=== PATIENT | male | born 1960 | race Caucasian/White ===

== ENCOUNTER 2025-03-19 06:25 | Day surgery (SDC) | payer MEDICARE, MEDICAID, SELFPAY ==
[2025-03-19] VITALS (18 sets, daily range): BP systolic 137–172; BP diastolic 56–92; PULSE 49–96; RESP 16–18; TEMP 36.2–36.8; O2SAT 89–97; BMI 30.4
--- OUTSIDE RECORDS SUMMARY | 2025-03-19 06:35 | XMS RPT_ITS | CCD ---
Author Organization [facility] Inform ion Partnership [facility] Care Team Providers Care Mink Rancher Name Role Phone VICTOR MANUEL VALERIO Attending Unavailable VICTOR MANUEL VALERIO Primary Care Unavailable VICTOR MANUEL VALERIO Admitting Unavailable KRAIG HAYES CNP Referring Unavailable KRAIG HAYES CNP Consulting Unavailable PROVIDER, UNKNOWN Consulting Unavailable PROVIDER, UNKNOWN Consulting Unavailable KRAIG HAYES CNP Consulting Unavailable JOSEFINA FERNANDEZ DR Attending Unavailable JOSEFINA FERNANDEZ DR Primary Care Unavailable JOSEFINA FERNANDEZ DR Admitting Unavailable PROVIDER, UNKNOWN Consulting Unavailable PROVIDER, UNKNOWN Consulting Unavailable JA METZ DO Attending Unavailable JA METZ DO Primary Care Unavailable JA METZ DO Admitting Unavailable KRAIG HYAES CNP Consulting Unavailable PROVIDER, UNKNOWN Consulting Unavailable PROVIDER, UNKNOWN Consulting Unavailable Nathan Rojas Primary Care Unavailable Ja Metz Attending Unavailable Problems Problem Classification Problem Date Documented Da te Episodic/Chronic E Codes: Fall (1 source) Fall on same level from slipping, tripping and stumbling without subsequent striking against object, initial encounter; Translations: [Fall on same level from slipping, tripping and stumbling without subsequent striking against object, initial encounter] Onset: 01-28-2025 Episodic E Codes: Place of occurrence (1 source) Garden or yard in single-family (private) house as the place of occurrence of the external cause; Translations: [Garden or yard in single-family (private) house as the place of occurrence of the external cause] Onset: 01-28-2025 Episodic Other injuries and conditions due to external causes (1 source) Unspecified injury of muscle(s) and tendon(s) of the rotator cuff of right shoulder, initial encounter; Translations: [Unspecified injury of muscle(s) and tendon(s) of the rotator cuff of right shoulder, initial encounter] Onset: 01-28-2025 Episodic Other non-traumatic joint disorders (2 sources) Pain in right shoulder; Translations: [Pain in right shoulder] Onset: 01-28-2025 Episodic Substance-related disorders (1 source) Nicotine dependence, unspecified, uncomplicated; Translations: [Nicotine dependence, unspecified, uncomplicated] Onset: 01-28-2025 Chronic Substance-related disorders (1 source) Cannabis use, unspecified, uncomplicated; Translations: [Cannabis use, unspecified, uncomplicated] Onset: 01-28-2025 Episodic Results Test Name Value Interpretation Reference Range Facility BMP with eGFRon 03-10-2025 AGE 64 years Normal [facility] Comment on above: Performed By: #### 2 [id number] #### [facility],[address] [place] [address] Anion gap [Moles/Vol] 8 mmol/L Low 10 - 20 [facility] Comment on above: Performed By: #### 2 68552 #### [facility],[address] [place] [address] BMP with eGFR Normal [facility] Comment on above: Result Comment: BASI C METABOLIC PANEL Performed By: #### 2 09059 #### [facility],[address] [place] [address] Calcium [Mass/Vol] 9.0 mg/dL Normal 8.5 - 10.1 [facility] Comment on above: Performed By: #### 2 45541 #### [facility],[address] [place], [place] [address] Chloride [Moles/Vol] 100 mmol/L Normal 98 - 107 [facility] Comment on above: Performed By: #### 2 77788 #### [facility],[address] [place], [place] [address] CO2 [Moles/Vol] 31.5 mmol/L Normal 21.0 - 32.0 [facility] Comment on above: Performed By: #### 2 01734 #### [facility],[address] [place], [place] [address] Creatinine [Mass/Vol] 0.83 mg/dL Normal 0.70 - 1.30 [facility] Comment on above: Performed By: #### 2 94500 #### [facility],[address] [place], [place] [address] GFR/1.73 sq M.predicted among non-blacks MDRD (S/P/Bld) [Vol rate/Area] mL/min/{1.73_m2} Normal 60 - 999 [facility] Comment on above: Performed By: #### 2 97954 #### [facility],[address] [place] [address] Result Comment: ACCO RDING TO THE NATIONAL KIDNEY DISEASE EDUCATION PROGRAM(NKDE), A NORMAL eGFR IS A VALUE GREATER THAN OR EQUAL TO 60 ML/MIN/1.73 SQ METERS. CHRONIC KIDNEY DISEASE: <60mL/MIN/1.73 SQ METERS KIDNEY FAILURE: <15mL/MIN/1.73 SQ METERS THIS TEST SHOULD ONLY BE USED FOR PATIENTS 18 YEARS OF AGE AND OLDER. Glucose [Mass/Vol] 75 mg/dL Normal 74 - 106 [facility] Comment on above: Performed By: #### 2 86679 #### [facility],[address] [place], [place] [address] Potassium [Moles/Vol] 3.9 mmol/L Normal 3.5 - 5.1 [facility] Comment on above: Performed By: #### 2 26422 #### [facility],[address] [place], [place] [address] Sodium [Moles/Vol] 136 mmol/L Normal 136 - 145 [facility] Comment on above: Performed By: #### 2 46290 #### [facility],[address] [place], [place] [address] Urea nitrogen [Mass/Vol] 12 mg/dL Normal 7 - 18 [facility] Comment on above: Performed By: #### 2 39613 #### [facility],[address] [place], [place] [address] CBC + DIFFon 03-10-2025 Baso # 0.04 x10EE3/UL Normal 0.00 - 0.10 [facility] Comment on above: Performed By: #### 2 77335 #### [facility],[address] [place] [address] 38625 Basophils/100 WBC (Bld) 0.5 % Normal 0.0 - 2.0 [facility] Comment on above: Performed By: #### 2 96588 #### [facility],[address] [place] [address] CBC + DIFF Normal [facility] Comment on above: Result Comment: CBC- COMPLETE BLOOD COUNT Performed By: #### 2 71879 #### [facility],[address] [place] [address] 12661 EO # 0.15 x10EE3/UL Normal 0.00 - 0.50 [facility] Comment on above: Performed By: #### 2 87507 #### [facility],[address] [place] [address] 45718 Eosinophils/100 WBC (Bld) 1.8 % Normal 0.0 - 7.0 [facility] Comment on above: Performed By: #### 2 80616 #### [facility],[address] [place] [address] 97188 Erythrocyte distribution width (RBC) [Ratio] 13.6 % Normal 12.0 - 15.6 [facility] Comment on above: Performed By: #### 2 46132 #### [facility],[address] [place] [address] 23521 Hematocrit (Bld) [Volume fraction] 45.8 % Normal 40.0 - 52.0 [facility] Comment on above: Performed By: #### 2 37342 #### [facility],[address] [place] [address] 46904 Hemoglobin (Bld) [Mass/Vol] 16.5 g/dL Normal 13.0 - 17.5 [facility] Comment on above: Performed By: #### 2 28852 #### [facility],[address] [place] [address] 16846 Lymph # 1.54 x10EE3/UL Normal 0.80 - 2.80 [facility] Comment on above: Performed By: #### 2 37299 #### [facility],[address] [place] [address] 90950 Lymphocytes/100 WBC (Bld) 18.8 % Low 20.0 - 45.0 [facility] Comment on above: Performed By: #### 2 48048 #### [facility],[address] [place] [address] 57164 MANUAL DIFF N/A Normal [facility] Comment on above: Performed By: #### 2 13731 #### [facility],[address] [place], [place] [address] MCH (RBC) [Entitic mass] 35 pg High 27 - 33 [facility] Comment on above: Performed By: #### 2 29199 #### [facility],[address] [place] [address] 62442 MCHC 36 X10 3 Normal 32 - 36 [facility] Comment on above: Performed By: #### 2 72093 #### [facility],[address] [place] [address] 56337 MCV (RBC) [Entitic vol] 97 fL Normal 81 - 98 [facility] Comment on above: Performed By: #### 2 04049 #### [facility],[address] [place] [address] 50411 Laramie # 0.70 x10EE3/UL Normal 0.20 - 1.00 [facility] Comment on above: Performed By: #### 2 82082 #### [facility],[address] [place] [address] 83348 MONOS % 8.6 % Normal 0.0 - 10.0 [facility] Comment on above: Performed By: #### 2 35228 #### [facility],[address] [place] [address] 24917 Morphology Paul (Bld) [Interp] N/A Normal [facility] Comment on above: Performed By: #### 2 51715 #### [facility],[address] [place] [address] 98945 Neut # 5.74 x10EE3/UL Normal 1.50 - 7.10 [facility] Comment on above: Performed By: #### 2 30638 #### [facility],[address] [place] [address] 86378 Neutrophils/100 WBC (Bld) 70.3 % Normal 46.0 - 76.0 [facility] Comment on above: Performed By: #### 2 20677 #### [facility],[address] [place] [address] 12066 PLATELET 249 x10EE3/UL Normal 150 - 450 [facility] Comment on above: Performed By: #### 2 53756 #### [facility],[address] [place] [address] 21814 Platelet mean volume (Bld) [Entitic vol] 8.5 fL Normal 6.4 - 10.5 [facility] Comment on above: Result Comment: AUTO MATED DIFFERENTIAL Performed By: #### 2 42672 #### [facility],[address] [place] [address] 80279 RBC 4.74 x 10EE6/UL Normal 4.50 - 6.00 [facility] Comment on above: Performed By: #### 2 08082 #### [facility],[address] [place] [address] 55634 WBC 8.2 x 10EE3/UL Normal 4.5 - 10.8 [facility] Comment on above: Performed By: #### 2 77823 #### [facility],[address] [place] [address] 67082 MR SHOULDER W/O RTon 025 MR SHOULDER W/O RT [address] [address] Patient: RASHEED HALL Phone#: : 1960 Age: 64 Gender: M Pt. Type: Out Account: [id number] Location: 052 Ordering: JOSEFINA FERNANDEZ Exam Date: 02/06/2025/16:35 Family Phys: KRAIG HAYES Charge Code: [id number] Physician: Prince George Order #: [id number] Dose#: PROCEDURE: MRI SHOULDER RT WITHOUT CONTRAST COMPARISON: None. INDICATIONS: Fall TECHNIQUE: A variety of imaging planes and parameters were utilized for visualization of suspected pathology. Images were performed without contrast. FINDINGS: ROTATOR CUFF REGION CUFF TENDONS: Full thickness supraspinatus tendon tear with retraction approximately 3.1 cm. High-grade subscapularis tendon tear, series 10, image 20. There may be a few intact fibers. The majority of the tendon is thickened, hyperintense in signal and heterogeneous. Full thickness infraspinatus tendon tear at the myotendinous junction. The remaining length of the tendon appears dissected with fluid. The free edge of the tendon is thickened and heterogeneous in signal, series 10, image 13. CUFF MUSCLES: There is extensive edema in the infraspinatus and supraspinatus muscles. There is mild edema in the subscapularis muscle. In the region of the teres minor there is heterogeneous T1 and T2 hyperintense signal, most consistent with hematoma. The collection measures 1.7 x 1.3 x 3.4 cm, series 8, image 23 and series 7, image 8. There is edema in the residual teres minor. DELTOID: There is an intramuscular hematoma in the anterior deltoid, series 10, image 22. The hematoma measures approximately 8.7 x 2.8 x 5.3 cm. Fluid collection demonstrates T1 and T2 signal heterogeneity. LONG BICEPS TENDON: Long head biceps tendon is medially subluxed, series 10, image 16. The tendon is thickened and heterogeneous in signal consistent with tear. There is heterogeneous fluid surrounding the tendon is distal to the bicipital groove. LABRUM/BICEPS ANCHOR SUPERIOR: Superior labral tear, series 8, image 17. ANTERIOR/INFERIOR: Normal. No visible tear or attrition. POSTERIOR: Normal. No posterior labrum abnormality. CAPSULE Continued Report - Page 2 of 2 Patient: RASHEED HALL Phone#: : 1960 Age: 64 Gender: M Pt. Type: Out Account: [id number] Location: [facility] Ordering: JOSEFINAANGÉLICA FERNANDEZ Exam Date: 02/06/2025/16:35 Family Phys: KRAIG HAYES Charge Code: [id number] Physician: Prince George Order #: [id number] Dose#: ANTERIOR/INFERIOR: Middle glenohumeral ligament appears intact. Inferior glenohumeral ligament appears thickened with mild associated T2 hyperintense signal though appears intact. POSTERIOR: Normal. No visible capsular laxity or thickening. AC JOINT REGION AC JOINT: There is arthrosis at the acromioclavicular joint. AC LIGAMENTS: Normal acromioclavicular ligament. CC LIGAMENTS: Normal coracoclavicular ligaments. ACROMION: Type 2 configuration SUBACROMIAL BURSA: There is heterogeneous fluid filling the subacromial subdeltoid bursa. HYALINE CARTILAGE: There is thinning of the cartilage of the humeral head and glenoid. OTHER BONES: There is superior subluxation of the glenoid with loss of acromial humeral interval consistent with rotator cuff tear. There is posterior subluxation of the humeral head relative to the glenoid. OTHER OBSERVATIONS: There is a moderate sized joint effusion. CONCLUSION: 1. Full thickness supraspinatus tendon tear with retraction. 2. Near complete full-thickness subscapularis tendon tear. The tendon is thickened and abnormal in signal. There may be a few intact fibers. 3. Infraspinatus tendon tear at the myotendinous junction. Joint effusion tracks in a tear along the length of the free edge of the distal tendon. The free edge of the tendon is hypertrophied and abnormal in signal. 4. Large intramuscular hematoma in the anterior deltoid muscle. 5. Long head biceps tendon is medially subluxed and enlarged and hyperintense in signal consistent with tear. 6. Superior labral tear 7. Hematoma corresponding to the teres minor muscle. 8. Humeral head is superiorly and posteriorly subluxed. Cartilage loss at the glenohumeral articulations. 9. Intramuscular edema involving all rotator cuff muscles. 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 Given 5-325 (Percocet) PO Allergies verified and confirmed 5 rights. Information reviewed with 18:00 01/28/2025 1 tab (NOW x1, patient including reason for taking this medication, signs of allergic Stefany Barr R.N. HIGH ALERT reaction and precautions. Verbalizes understanding. - 18:04 Scanned MEDICATION) Stefany Barr R.N. TraMADol (Ultram) 20:01 01/28 TraMADol (Ultram) PO 100 mg given. Allergies Given PO 100 mg (NOW verified and confirmed 5 rights. Information reviewed. Verbalizes 20:01 01/28/2025 x1, HIGH ALERT understanding. - 20:01 Tori Parker R.N. MEDICATION) Scanned 1 of 1 Normal [facility] ED NURSES CLINICAL NOTEon ED NURSES CLINICAL NOTE Nurse Narrative Nurse Clinical Narrative [address] [address] [id number] 01/28/2025 17:31:00 Patient: RASHEED HALL Sex: Male : 1960 Age: 64y Disposition: Discharge Disposition Decision Time: 18:17 01/28/2025 Departure Time: 20:02 01/28/2025 TRIAGE Arrived by private vehicle. Historian: (patient). Patient has a primary care physician. Primary physician (none). Triage time: 17:32 01/28/2025. Acuity: LEVEL 4. Chief Complaint: INJURY TO RIGHT SHOULDER. ( pt slipped on wet carpet this morning and fell on his right shoulder and his left leg. pt has large bruise to right shoulder. limited ROM). Fell. SEPSIS SCREEN: NEGATIVE. SIRS criteria negative: heart rate greater than 90. No possible sources of infection. -- 17:39 01/28/25 EDT Alfredo Hylton R.N. 17:35 01/28/25. BP: 120/87 MAP: 98. HR: 88. RR: 18. O2 saturation: 97% Temperature: 98.1 F. Pain level now 10. -- 17:38 01/28/25 EDT Alfredo Hylton R.N. Measurements: 17:39 01/28/25 Wt: 95.3 kg, Ht/Estevan: 69.0 in, BMI: 31.01 -- 17:39 01/28/25 MARIAMT Alfredo Hylton R.N. Medications: no known home medications -- 17:35 01/28/25 MARIAMT Alfredo Hylton R.N. 1 of 3 Nurse Narrative Allergies: no known drug allergies -- 17:35 01/28/25 DANIEL Hylton R.N. Problems: no known problem -- 17:35 01/28/25 DANIEL Hylton R.N. Surgeries: Back Surgery -- 17:35 01/28/25 DANIEL Hylton R.N. History 17:01/28/25. SOCIAL HX: Heavy tobacco smoker- 1 pack per day. Drug use: marijuana, THC edibles. No alcohol use. The patient has not traveled outside the [place] Infectious disease exposure: No infectious disease exposure. ABUSE ASSESSMENT: Abuse denied. SELF HARM ASSESSMENT: Self harm assessment was performed. The patient answered no to the question(s) Do you have thoughts of harming or killing yourself? and Do you have a plan for harming or killing yourself?. FALL RISK ASSESSMENT: Fall risk assessment completed. No risk factors identified. -- 17:39 01/28/25 EDT Alfredo Warner, R.N. Interventions 17:32 01/28/25. Advanced care plan discussed with patient. Patient does not have advanced directive. -- 17:39 01/28/25 EDT Alfredo Hylton R.N. PHYSICAL ASSESSMENT 18:07 01/28/25. GENERAL / NEURO / PSYCH: Oriented X 4. Alert. Appears in no acute distress. EXTREMITIES: Capillary refill is less than 2 seconds in the extremities. Extremity pulses are within normal limits. 2 of 3 Nurse Narrative Neuro-vascular status intact to the extremity. Right shoulder: tenderness, swelling and ecchymosis. Limited ROM due to pain and swelling (diminished abduction and adduction). SKIN: Skin intact. Skin is warm and dry. -- 18:07 01/28/25 EDT Stefany Barr R.N. 18:07 01/28/25. Pain level now 10/10. Describes the pain as throbbing. -- 18:07 01/28/25 EDT Stefany Barr R.N. NURSING PROGRESS NOTES 17:43 01/28/25. ED physician at the patient's bedside. -- 17:58 01/28/25 EDT Stefany Barr R.N. 17:48 01/28/25. cd technician at the patient's bedside (for shoulder xray). -- 17:58 01/28/25 MARIAMT Stefany Barr R.N. 18:00 01/28/25. OxyCODONE-APAP 5-325 (Percocet) PO 1 tab given. Allergies verified and confirmed 5 rights. Information reviewed with patient including reason for taking this medication, signs of allergic reaction and precautions. Verbalizes understanding. -- 18:04 01/28/25 EDT Stefany Barr R.N. 19:10 01/28/25. Sling applied to right arm by nurse; distal pulses intact, sensation intact and motor function within normal limits. -- 19:35 01/28/25 EDT Stefany Barr R.N. 20:01 01/28/25. TraMADol (Ultram) PO 100 mg given. Allergies verified and confirmed 5 rights. Information reviewed. Verbalizes understanding. -- 20:01 01/28/25 EDT Mellisa Fernandez R.N. DISPOSITION / DISCHARGE 19:32 01/28/25. BP: 181/100 taken on left arm, while sitting. MAP: 127. HR: 81. Regular. RR: 16. Regular and unlabored. O2 saturation: 97% on room air. Temperature: Deferred . Pain level now 04/02. -- 19:34 01/28/25 EDT Stefany Barr R.N. 19:34 01/28/25. Cardiac rhythm: normal sinus rhythm. Condition at departure: stable. No learning barriers present. Discharge instructions provided and reviewed with the patient. Reviewed medication(s) side effects, precautions, dosing and course information. Prescription(s) given to the patient and sent electronically to pharmacy. Reviewed referral to an orthopedic surgeon for followup. Patient verbalized understanding. Written instructions provided in Setswana. The patient was discharged home. The patient left ambulatory and via private vehicle. Family member driving. -- 19:34 01/28/25 EDT Stefany Barr R.N. Departure time: 20:02 01/28/2025. -- 20:02 01/28/25 EDT Mellisa Fernandez R.N. 20:02 01/28/25. ( Ultram 50mg x2 sent home with pt.). -- 20:03 01/28/25 EDT Mellisa Fernandez R.N. (E (more content not included)... Normal [facility] ED ORDER SHEET (CPOE ONLY)on 01-29-2025 ED ORDER SHEET (CPOE ONLY) Order Sheet Order Sheet [address] [address] [id number] 01/28/2025 Patient: RASHEED HALL Sex: Male : 1960 Age: 64y MEASUREMENTS: Wt: 95.3 kg, Ht/Estevan: 69.0 in, BMI: 31.01 ALLERGIES: No known drug allergies MEDICATION/IV/DRIP/FLU ID ORDERS Order Description Priority Entered Acknowledged Completed OxyCODONE-APAP 5-325 17:35 01/28/2025 17:59 18:04 (Percocet) PO1 tab (NOW Victor Manuel galan, 01/28/2025 01/28/2025 HIGH ALERT MEDICATION) D.O. Stefany Everett R.N. R.N. TraMADol (Ultram) PO100 mg 19:29 01/28/2025 20:01 (NOW x1, HIGH ALERT Jermaine Duran, 01/28/2025 MEDICATION) Poncho Fernandez R.N. Reason for ordering with alerts: Benefits outweigh risks --19:29 01/28/2025 Jermaine Duran D.O. LAB ORDERS Order Description Priority Entered Acknowledged Collected Completed DIAGNOSTIC STUDY ORDERS Order Description Priority Entered Acknowledged Completed Shoulder R Complete Stat Stat 17:35 01/28/2025 17:59 17:59 Victor Manuel Valerio, 01/28/2025 01/28/2025 1 of 2 Order Sheet Stefany Giang R.N. R.N. Reason for Study: Trauma/Injury STAFF ORDERS Order Description Priority Entered Acknowledged Collected Completed [Electronically signed by Victor Manuel Valerio D.O. (01/28/2025 18:20 EDT)] [Electronically signed by Jermaine Duran D.O. (01/28/2025 19:29 EDT)] 2 of 2 Normal [facility] ED PHYSICIAN CLINICAL REPORT on 01-29-2025 ED PHYSICIAN CLINICAL REPORT Narrative Physician Clinical Narrative [address] [address] [id number] 01/28/2025 17:31:00 Patient: RASHEED HALL Sex: Male : 1960 Age: 64y Disposition: Discharge Disposition Decision Time: 18:17 01/28/2025 Measurements Wt: 95.3 kg, Ht/Estevan: 69.0 in, BMI: 31.01 Initial Vital Sign Measured Time BP MAP HR RR O2Sat ETCO2 Temp Pain GCS RTS 17:35 01/28/2025 120/87 98 88 18 97% 98.1 F 10 Time Seen: 17:36 01/28/2025. Arrived- By private vehicle. Historian- patient. HISTORY OF PRESENT ILLNESS Chief Complaint: Injury to the right shoulder. The injury happened today. Occurred at home. ( Patient tripped over a rolled up piece of carpet outside and fell in his right shoulder. Has had pain since that time. Unable to lift up his shoulder. Denies any head injury or loss of consciousness. Patient is not on anticoagulation.). REVIEW OF SYSTEMS NEUROLOGICAL: No tingling or numbness. PAST HISTORY no known problem 1 of 4 Narrative Surgeries: Back Surgery Medications: no known home medications Allergies: no known drug allergies SOCIAL HISTORY No alcohol use or drug use. ADDITIONAL NOTES The nursing notes have been reviewed. PHYSICAL EXAM Vital Signs: Have been reviewed. Appearance: Alert. No acute distress. Head: Head atraumatic. Neck: C-spine non-tender. Extremities: Right shoulder: moderate tenderness and swelling and large ecchymosis. Neurovascular intact distally. Neuro, Vascular and Tendons: Vascular status intact. Sensation intact. LABS, X-RAYS, AND EKG X-Rays: Right shoulder negative. The X-rays were independently viewed by me and interpreted by the radiologist. Diagnostic Study Tests: SHOULDER COMPLETE RT Final 2 of 4 Narrative EXAM Date: 01/28/2025 18:11:00 EDT MsgRcvd: 01/28/2025 18:14 EDT [place] [address] Patient: RASHEED HALL Phone#: : 1960 Age: 64 Gender: M Pt. Type: ER Account: [id number] Location: [facility] Ordering: VICTOR MANUEL VALERIO Exam Date: 01/28/2025/17:38 Family Phys: KRAIG HAYES Charge Code: [id number] Physician: [place] Order #: [id number] Dose#: PROCEDURE: X-RAY SHOULDER COMPLETE RT MIN 2 VIEWS COMPARISON: None. INDICATIONS: Trauma/injury. FINDINGS: BONES: Degenerative changes are present at the acromioclavicular joint. There is no evidence of acute bone abnormality. SOFT TISSUES: Negative. No visible soft tissue swelling. EFFUSION: None visible. OTHER: Negative. CONCLUSION: 1. Degenerative changes are present at the acromioclavicular joint. Dictated by: Dahiana Pat MD on 01/28/2025 at 18:10 Approved by: Dahiana Pat MD on 01/28/2025 at 18:11 PROGRESS AND PROCEDURES Differential Diagnosis: Other possible considerations: Right shoulder fracture, dislocation, contusion, rotator cuff injury. MEDICAL DECISION MAKING: (patient appears well nontoxic. Neurovascularly intact. Treated with oral Percocet. X-ray negative. Concern for rotator cuff injury. Patient placed in a sling. Given orthopedic follow up. Oral tramadol for home. Stable time of discharge.). Disposition: Condition: good. Disposition Decision Time: 18:17 01/28/2025. Patient discharged. Discharged in good condition. 3 of 4 Narrative CLINICAL IMPRESSION Rotator cuff injury. DISCHARGE INSTRUCTIONS Wear sling. Prescription Medications: tramadol 50 mg tablet: Take 1 tablet by mouth three times a day as needed for pain for 3 days, dispense 9 tablet. Refills 0. Pharmacy: [facility] [id number] [place] [address]. [facility], Phone: [phone], [facility] [address] [address]. Follow up in three days. Call for an appointment. (Electronically signed by Victor Manuel Valerio D.O. 01/28/25 18:20:25 EDT) Generated by [facility] 4 of 4 [facility] ED SUPER BILL 01-29-[address] [address] [id number] 01/28/2025 Patient: RASHEED HALL Sex: Male : 1960 Age: 64y Item Professional Category Description Facility Code Code Quantity Fee Total Nurse/E/M EMERGENCY 605305 1 $0.00 $0.00 DEPARTMENT VISIT HIGH/URGENT SEVERITY (06985-77) Grand Total $0.00 Providers Victor Manuel Valerio D.O. Chief Complaint Injury to the right shoulder. Principal Diagnosis Rotator cuff injury. ICD-10 Codes 1 of 2 [facility] S46.009A: Unspecified injury of muscle(s) and tendon(s) of the rotator cuff of unspecified shoulder, initial encounter 2 of 2 [facility] ED VISIT SUMMARYon ED VISIT SUMMARY Visit Overview Visit Overview [place] [address] [place] [address] [phone] 01/28/2025 Patient: RASHEED HALL Sex: Male : 1960 Age: 64y 01/29/2025 10:07 AM EDT ED Arrival:17:31 01/28/2025 EDT Status: Recent Travel: Language:eng Adv Directive: Isolation Status: Ethnicity:N Fall Risk: Infectious Disease Exposure: Measurements:5'9 / 175.3 Self-Harm Status: Sepsis Screen: cm 210.0 lb / 95.3 kg Chief Complaint: ALLERGIES No Known Drug Allergies HOME MEDICATIONS None PAST MEDICAL HISTORY / PROBLEMS None PAST SURGICAL HISTORY 1 of 3 Visit Overview Back Surgery SOCIAL HISTORY ED COURSE MEDICATIONS GIVEN IN EMERGENCY DEPARTMENT 18:00 01/28/25 OxyCODONE-APAP 5-325 (Percocet) PO 1 tab 20:01 01/28/25 TraMADol (Ultram) PO 100 mg IV SITE INFORMATION INTAKE OUTPUT REASSESMENT (most recent) VITAL SIGNS First Vitals Last Vitals Temp 17:35 01/28/25 98.1 F Temp 19:33 01/28/25 BP 17:35 01/28/25 120/87 BP 19:33 01/28/25 181/100 HR 17:35 01/28/25 88 HR 19:33 01/28/25 78 RR 17:35 01/28/25 18 RR 19:33 01/28/25 O2 Sat 17:35 01/28/25 97% O2 Sat 19:33 01/28/25 Pain 17:35 01/28/25 10 Pain 19:33 01/28/25 ETCO2 17:35 01/28/25 ETCO2 19:33 01/28/25 GCS 17:35 01/28/25 GCS 19:33 01/28/25 RTS 17:35 01/28/25 RTS 19:33 01/28/25 PROCEDURES NURSING INTERVENTIONS LABS / STUDIES LABS / STUDIES ORDERED Shoulder R Complete 2 of 3 Visit Overview CLINICAL IMPRESSION ROTATOR CUFF INJURY 3 of 3 Normal [facility] ED VITALS FLOW SHEETon 01-29 ED VITALS FLOW SHEET Vitals Vital Sign Flow Sheet [address] [place] [address] [id number] 01/28/2025 Patient: RASHEED HALL Sex: Male : 1960 Age: 64y Measurements Wt: 95.3 kg, Ht/Estevan: 69.0 in, BMI: 31.01 Measured Time BP MAP HR RR O2Sat ETCO2 Temp Pain GCS RTS 19:33 01/28/2025 181/100 126 78 19:32 01/28/2025 181/100 127 81 16 97% RA 7 18:17 01/28/2025 76 95% 18:12 01/28/2025 82 96% 18:07 01/28/2025 169/84 112 84 18:07 01/28/2025 10 18:07 01/28/2025 82 96% 18:04 01/28/2025 180/86 104 84 17:35 01/28/2025 120/87 98 88 18 97% 98.1 F 10 1 of 1 Normal [facility] SHOULDER COMPLETE RTon 01-28 SHOULDER COMPLETE RT [address] [address] Patient: RASHEED HALL. Phone#: : [phone] Age: 64 Gender: M Pt. Type: ER Account: [id number] Location: [facility] Ordering: VICTOR MANUEL VALERIO Exam Date: 01/28/2025/17:38 Family Phys: KRAIG HAYES Charge Code: 714670 Physician: [place] Order #: [id number] Dose#: PROCEDURE: X-RAY SHOULDER COMPLETE RT MIN 2 VIEWS COMPARISON: None. INDICATIONS: Trauma/injury. FINDINGS: BONES: Degenerative changes are present at the acromioclavicular joint. There is no evidence of acute bone abnormality. SOFT TISSUES: Negative. No visible soft tissue swelling. EFFUSION: None visible. OTHER: Negative. CONCLUSION: 1. Degenerative changes are present at the acromioclavicular joint. Dictated by: Dahiana Pat MD on 01/28/2025 at 18:10 Approved by: Dahiana Pat MD on 01/28/2025 at 18:11 Normal [facility] LEFT SHOULDER MIN 2Von 04-14 TSH Qn EXAMINATION: TWO XRAY VIEWS OF THE LEFT SHOULDER 04/14/2019 9:53 am COMPARISON: None. HISTORY: ORDERING SYSTEM PROVIDED HISTORY: JOINT PAIN BACK PAIN FINDINGS: Four views of the left shoulder demonstrate irregularity of the glenohumeral joint space with a moderately severe high riding shoulder consistent with a chronic rotator cuff tear. There is mild irregularity of the acromioclavicular joint. The left hemithorax appears unremarkable. IMPRESSION: Moderately severe osteoarthritic changes with a high riding shoulder consistent with a chronic rotator cuff tear. RECOMMENDATION: If further evaluation is desired, recommend MRI of the left shoulder. Thank you very much for this referral! Normal [facility] LUMBAR 2 OR 3 Von 04-14-2019 LUMBAR 2 OR 3 V EXAMINATION: 3 XRAY VIEWS OF THE LUMBAR SPINE 04/14/2019 9:53 am COMPARISON: None HISTORY: ORDERING SYSTEM PROVIDED HISTORY: JOINT PAIN BACK PAIN FINDINGS: Five views of the lumbar spine demonstrate normal alignment without evidence of fracture or subluxation. There is slight scoliosis with convexity to the right. There is no evidence of spondylolisthesis. There is marked disc space narrowing with endplate hypertrophic spurring which is most pronounced at the L4-5 and L5-S1 levels. There are no acute compression fractures identified. The sacroiliac joints, as visualized, appear unremarkable. The bowel gas pattern appears unremarkable. IMPRESSION: Moderately severe multilevel discogenic changes as described. No evidence of compression fractures. RECOMMENDATION: If further evaluation is desired for possible canal stenosis, recommend MRI of the lumbar spine. Thank you very much for this referral! Normal [facility] Encounters Encounter Date Encounter Type Care Provider Facility Start: 03-19-2025 ambulatory Nathan Kelsey ty:[facility] Start: 03-10-2025 End: 03-10-2025 ambulatory JA LOERA [facility] Start: 02-06-2025 End: 02-06-2025 ambulatory KRAIG HAYES [facility] Start: 01-28-2025 End: 01-28-2025 Emergency department patient visit VICTOR MANUEL VAELRIO [facility] Payers Date Payer Category Payer Medicare [id number] 2025 Self-pay 1960 Unknown [id number] 1960 Unknown [id number] 1960 Unknown [id number] Medicaid [id number] Unknown [id number] Summary Purpose Family History No Family History Records FoundNo Family History Records FoundNo Family History Records Found Advance Directives No Advanced Directives Records FoundNo Advanced Directives Records FoundNo Advanced Directives Records Found Additional Source Comments (unrecognized sect ion and content) No Status Records FoundNo Status Records FoundNo Status Records Found INFORMATION SOURCE (unrecogn ized section and content) DATE CREATED AUTHOR 04/14/2019 [facility] DATE CREATED AUTHOR AUTHOR'S ORGANIZ ATION 03/12/2025 [facility] DATE CREATED AUTHOR AUTHOR'S ORGANIZ ATION 03/17/2025 [facility] FOR RECORDS PERTAINING TO PATIENTS WHO ARE OR HAVE BEEN ENROLLED IN A CHEMICAL DEPENDENCY/SUBSTANCEABUSE PROGRAM, SOME INFORMATION MAY BE OMITTED. This clinical summary was aggregated from multiple sources. Caution should be exercised in using it in the provision of clinical care. This summary normalizes information from multiple sources, and as a consequence, information in this document may materially change the coding, format and clinical context of patient data. In addition, data may be omitted in some cases. CLINICAL DECISIONS SHOULD BE BASED ON THE PRIMARY CLINICAL RECORDS. [employer] provides no warranty or guarantee of the accuracy or completeness of information in this document.
[2025-03-19] MEDS: Lactated Ringers 1,000 ML 15 ML IV (06:56)
--- NOTE | 2025-03-19 07:25 | PRE.ANES_ITS ---
ASA Classification* ASA Classification ASA Classification: 2 Assessment & Plan Anesthesia* Anesthesia Assessment Anesthesia Assessment: Discussed sedation and/or anesthesia options, risks, benefits, and alternatives with patient/parents/legal guardian/POA. Questions invited. The patient/parents/legal guardian/POA seems to understand and agrees to proceed with anesthesia plan. Reviewed the physical assessment, medical history, allergy history and patient home medications list prior to surgery/procedure/anesthetic and documented any changes. Performed airway and anesthesia risk assessments. Anesthesia Type Anesthesia Type: General and Block (Patient is consented for interscalene block.) History Source History Obtained from:: Patient and Chart Anesthesia Focused Assessment* Temperature: 97.6 F Pulse Rate: 74 Blood Pressure: 172/69 Respiratory Rate: 16 Pulse Ox: 97 Oxygen Delivery Method: Room Air Airway Assessment Mouth opens: >3 cm Mallampati Score: II Teeth Condition: Chipped/Broken (Patient has couple broken teeth. Remaining teeth are tight.) and Missing (Patient is edentulous on top. Missing several teeth on the bottom.) Neck Range of motion (ROM): Limited ROM Labs Anesthesia Preop lab: CBC CHEMISTRY COAG Pre-Assessment Diagnosis/Proposed Procedure Planned Operative Procedure(s): RIGHT SHOULDER RTC REPAIR SUBCROMIAL DECOMPRESSION Anesthesia History Anesthesia History - shake backboard notcher: Anesthesia History - shake backboard notcher Hx Hospitalization No 03/17/25 15:35 Any Problems With Anesthesia No 03/17/25 15:35 Cholinesterase deficiency No 03/17/25 15:35 You/Your Family Experience No 03/17/25 15:35 fever (hyperthermia) with Relationship Recent Exposure to Contagious No 03/19/25 06:57 Disease Does patient have nerve No 03/17/25 15:35 stimulator Patient instructed to have device shut off --Does patient have Pacemaker No 03/19/25 06:57 or ICD? When Was Last Pacemaker Check QUESTION #4 FULL TEXT: You/Your Family Experience fever (hyperthermia) with Anesthesia Last Oral Intake Last Oral intake: Last Oral Intake NPO since 00:00 03/19/25 06:57 Meds taken in AM with sips of No 03/19/25 06:57 water? Meds patient instructed to take am of surgery PONV PONV - shake backboard notcher: PONV - shake backboard notcher Female No 03/17/25 15:35 HX of Motion Sickness No 03/17/25 15:35 HX of N/V After Surgery No 03/17/25 15:35 Non-Smoker No 03/17/25 15:35 Duration of Surgery greater Yes 03/17/25 15:35 than 60 minutes Number of Risk Factors 1 03/17/25 15:35 PONV Score Low Risk 03/17/25 15:35 Height & Weight Height & Weight: Anesthesia: Height & Weight Height 5 ft 8 in 03/19/25 06:57 Weight: 91 kg 03/19/25 06:57 Body Mass Index (BMI) 30.4 03/19/25 06:57 Respiratory Assessment Respiratory Assessment - shake backboard notcher: Respiratory Tract Infection Hx - shake backboard notcher Hx Respiratory Tract Infection No 03/17/25 15:35 STOP Sleep Apnea STOP Sleep Apnea - shake backboard notcher: STOP Sleep Apnea - shake backboard notcher Hx Hypertension Yes: NO MEDS FOR YRS 03/17/25 15:35 Hx Sleep Apnea No 03/17/25 15:35 CPAP BIPAP Do you snore loudly (louder Yes 03/17/25 15:35 than talking or can be heard Do you often feel tired/ No 03/17/25 15:35 fatigued/ sleepy during daytime? Has anyone observed you stop No 03/17/25 15:35 breathing during sleep? STOP Results Positive 03/17/25 15:35 QUESTION #5 FULL TEXT : Do you snore loudly (louder than talking or can be heard through closed doors)? 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 Specify any problems Hx of Preganancy in last 3 N/A 03/17/25 15:35 Months Nurse Filling Out Transfusion DSCHRIBER 03/17/25 15:35 & Questions: Date: 03/17/25 03/17/25 15:35 Time: 15:37 03/17/25 15:35 Patient unable to answer at this time (ie. confused, unrespo /Reproduction History /Reproductive History - shake backboard notcher: /Reproductive Hx- shake backboard notcher Hx Now No 03/17/25 15:35 Gestational Age (in weeks): EDC: Hx Hx Para Hx Section SAB No 03/17/25 15:35 Active Medications Active Medications: Current Medications Generic Name Dose Route Start Last Admin Trade Name Freq PRN Reason Stop Dose Admin Cefazolin Sodium 2 gm/ Sodium 110 mls @ 200 mls/hr 03/19/25 08:30 Chloride IV 03/19/25 09:02 INTRAOP ONE Lactated Ringer's 1,000 mls @ 15 mls/hr 03/19/25 06:45 03/19/25 06:56 IV 15 mls/hr .Q48H YUSUF Administration PFSH Medical History Wears glasses Marijuana use Arthritis Restless legs Back pain Gastric reflux Shortness of breath on exertion Leg cramps History of pain when walking Smoker History of echocardiogram Hypertension Home Medications ?Medication ?Instructions ?Recorded ?Last Taken ?Type ibuprofen 200 mg tablet 200 mg PO Q6H PRN PRN Pain 0 12/10/14 Unknown History acetaminophen 500 mg tablet 1,000 mg PO Q6H PRN pain 0 03/17/25 Unknown History (Acetaminophen Extra Strength) Allergy/AdvReac Type Severity Reaction Status Date / Time No Known Allergies Allergy Verified 03/19/25 06:56 Surgical History History of lumbar discectomy Social History Smoking Status: Current every day smoker (Patient smoked today.) tobacco type: cigarettes Review of Systems (Anesthesia) ROS Narrative System reviewed and no additional complaints, except as documented.
[2025-03-19] MEDS: Cefazolin 2 GM in 0.9% Normal Saline (100mL Bag) 100 ML IV (08:30)
[2025-03-19] MEDS: Epinephrine (1 mg/ml) 1 MG/ML VIAL (09:01)
--- NOTE | 2025-03-19 10:33 | PCM.OPRPT ---
Operative Report (Standard) Operative Information Date of Procedure: 03/19/25 Pre-Operative Diagnosis: 1. Right shoulder rotator cuff tear 2. Right shoulder biceps tendon instability and tendinopathy 3. Right shoulder subacromial impingement syndrome Post-Operative Diagnosis: 1. Right shoulder rotator cuff tear 2. Right shoulder biceps tendon instability and tendinopathy 3. Right shoulder subacromial impingement syndrome Surgery/Procedure Performed: Right shoulder arthroscopic rotator cuff repair, subacromial decompression, arthroscopic biceps tenodesis psychiatrist: Yes Consultative Sales Associate: Madhavi Bean Tasks completed by veterinary assistant technician: Opening & closing and Implanting device Type of Anesthesia: General RN Documented Start/Stop Times: Operation Date: 03/19/25 08:30 Case Time Into Pre-Op 03/19/25 06:37 Anesthesia Start 03/19/25 08:12 Into Room 03/19/25 08:12 Out of Pre-Op 03/19/25 08:12 Procedure Start 03/19/25 08:39 Procedure Start Time: 08:39 Procedure Stop Time: 10:38 Select all DRAINS/GRAFTS/IMPLANTS that apply: Implanted device Implanted device details: Arthrex fiber tack triple loaded anchor x 1, Arthrex bio composite self punching swivel lock anchor x4 Estimated Blood Loss: 5 cc Specimen collected: No Description of surgery: Patient was identified in the preoperative holding area by name, medical record number, and date of . The operative extremity was marked. All questions were answered to the patient satisfaction. Interscalene block was then administered by anesthesia staff. At time of his procedure, patient was brought the operative suite and positioned supine a standard operating table. General anesthesia was induced and endotracheal tube placed. Patient was then positioned in the lateral decubitus position with the right side up. All bony prominences were well-padded. Axillary roll was placed. We spun the bed 45 degrees. We prepped and draped the right upper extremity in a normal, sterile orthopedic fashion. We then performed a timeout confirming the side, site, and operation to be performed. No concerns were voiced to me elected to proceed with surgery. 2 g Ancef was administered IV prior to incision by anesthesia staff. Right upper extremity was placed in arthroscopic traction with 15 pounds of traction force applied right arm throughout the case approximately 1.5 hours. Standard posterior portal was then established. Blunt tipped trocar was used to enter the glenohumeral joint which was filled with normal saline with epinephrine. Massive rotator cuff tear was noted with significant synovitis. Biceps tendon was dislocated anteriorly. No significant SLAP tear was noted. I then established an anterior interval portal and rigid cannula was placed. I placed 2 fiber link sutures in the intra-articular portion of the biceps tendon to mobilize it with plans to do a arthroscopic tenodesis with retained origin to act as a superior capsular reconstruction. Transverse humeral ligament was then released and the tendon was mobilized up to the anterior insertion of the rotator cuff cable. Sutures were then passed through the eyelet of a swivel lock anchor which was placed at the anterior margin of the cable insertion with excellent purchase. I then placed 2 traction stitches within the supraspinatus. Tendon was mobilized with a anterior interval slide as well as a posterior wall slide. Tissue quality. Reasonable however at the rotator cuff is significantly immobile however completing the releases were able to mobilize it reasonably well. I did medialized the rotator cuff insertion approximately 8 mm. Bur was used to decorticate to perform her medialization. I then first attempted a medial row anchor, triple loaded fiber tack. Sutures were passed sequentially through the supraspinatus. After tensioning attempting to tie the first suture pair, the anchor dislodged from bone. Given the good purchase of sutures I elected to keep the anchor in place. 2 of the sutures were passed through a swivel lock anchor anteriorly and the remaining suture posteriorly was passed through a different swivel lock anchor for single row fixation. Sutures were tensioned and anchors were placed in standard fashion with excellent purchase. I then reduced the infraspinatus posteriorly with a inverted mattress fiber tape suture passed through a swivel lock anchor with excellent purchase. I then closed the interval created by the posterior interval slide with a simple [id number] #2 FiberWire suture in standard fashion. There is excellent reapproximation of [place] cuff tissue to its medialize insertion. Sutures were cut with the anchors. Limited acromioplasty was performed to smooth the acromion and minimize the downsloping effect of the acromion. Subacromial space was then thoroughly lavaged. Instruments were removed. Portal sites were closed in interrupted [id number] fashion with 3-0 nylon suture. Bulky sterile compression dressing was applied. Patient was placed in an UltraSling, positioned supine and safely explained the operative suite. Safely awakened from anesthesia without complication. He tolerated the procedure well without apparent complication. He was transferred to his gurney and subsequently PACU in stable condition. Postoperative plan: Discharge home after meeting for same-day surgery criteria Nonweightbearing upper extremity. Pendulums only right shoulder x 6 weeks. Delay physical therapy until 6 weeks. Ice to the operative shoulder. Multimodal pain management with Tylenol, NSAIDs and oxycodone. Aspirin 81 mg twice daily for DVT prophylaxis x 2 weeks. Surgical Findings: Massive right shoulder and mobile retracted rotator cuff tear. Biceps tendon instability. Complications Complications: No Admit VTE Documentation VTE Present on Admission: No VTE Mechan Device Prophylaxis: SCD's VTE Pharm Prophylaxis ordered?: Yes
--- NOTE | 2025-03-19 11:01 | SUR.PHASEI ---
blanched area noted to right bicep, area appears swollen and cool to touch, ultra sling in place right arm
--- NOTE | 2025-03-19 12:11 | PCM.POST.ANE ---
Anesthesia: Postop Eval I Current Vital Signs Temperature: 97.2 F Pulse Rate: 76 Blood Pressure: 150/90 Respiratory Rate: 16 Pulse Ox: 96 Oxygen Delivery Method: Nasal Cannula Oxygen Flow Rate (L/min): 4 Assessment Airway patent: Yes Spontaneous unlabored respirations: Yes Mental status: Awake and Calm nausea: No Vomiting: No Anesthesia Complication: No Fluid Hydration Crystalloid volume administer (ml): 1,200 Total IV fluid infused: 1,200 Progress Note Post-operative progress note: Comfortable, resp easy, VSS Anesthesia document: Postop Eval 1 completed: Yes
[2025-03-19] MEDS: Ipratropium/Albuterol Sulfate 3 ML AMPUL.NEB INHALATION (12:19)
--- NOTE | 2025-03-19 12:50 | RAD_ITS ---
PROCEDURE: CHEST 1 VIEW (PORTABLE) 03/19/2025 REASON FOR EXAM: SPO2 89% POST OP TECHNIQUE: Frontal view of the chest. COMPARISON: None FINDINGS: Lordotic positioning is noted. There is mild cardiomegaly. Central vascularity appears increased. There is atelectasis or infiltrate at the left base and left retrocardiac region. There is no pneumothorax or effusion. There is no acute bony abnormality. RAD/Chest 1 View (Portable) IMPRESSION: There is mild cardiomegaly. Central vascularity appears increased. There is atelectasis or infiltrate at the left base and left retrocardiac regio n. Reading Location: [facility]
--- NOTE | 2025-03-19 13:37 | POSTOPAN2_ITS ---
Anesthesia Postop Eval I Sum Postop Eval Completion status Anesthesia document: Postop Eval 1 completed: Yes Anesthesia Postop Eval I Summary Anesthesia Postop Eval I Summary: Anesthesia Postop Eval I: Assessment Summary Airway patent Yes 03/19/25 12:12 LIME KILN AND RECAUSTICIZING OPERATOR.[email or web address] Spontaneous unlabored Yes 03/19/25 12:12 LIME KILN AND RECAUSTICIZING OPERATOR.JRIV respirations Mental status Awake,Calm 03/19/25 12:12 LIME KILN AND RECAUSTICIZING OPERATOR.JRIV nausea No 03/19/25 12:12 LIME KILN AND RECAUSTICIZING OPERATOR.JRIV Vomiting No 03/19/25 12:12 LIME KILN AND RECAUSTICIZING OPERATOR.JRIV Anesthesia Postop Eval I: Fluid Summary Crystalloid volume administer 1,200 03/19/25 12:12 LIME KILN AND RECAUSTICIZING OPERATOR.JRIV (ml) Colloids volume administered ( ml) Blood Product volume administered (ml) Total IV fluid infused 1,200 03/19/25 12:12 LIME KILN AND RECAUSTICIZING OPERATOR.JRIV Anesthesia Postop Eval I: Summary Notes Anesthesia Complication No 03/19/25 12:12 LIME KILN AND RECAUSTICIZING OPERATOR.JRIV Anesthesia Complication Comment: Post-operative progress note Comfortable, resp 03/19/25 12:12 LIME KILN AND RECAUSTICIZING OPERATOR.JRIV easy, VSS Anesthesia: Postop Eval II Evaluation Mental status: Awake and Calm Pain Level: 1 nausea: No Vomiting: No Progress Note Post-operative progress note: Patient has had a prolonged stay in PACU secondary to O2 saturations in the 89% range. This is significantly lower than his 97% saturation preoperatively. He has been using incentive spirometer. He has gotten a DuoNeb treatment. Patient does not complain of shortness of breath but his saturations remain depressed. Since the patient did have a brachial plexus block on the right side we got a chest x-ray to rule out paralyzed hemidiaphragm from inadvertent phrenic nerve anesthesia. The chest x-ray showed mild cardiomegaly. Central vascular markings are increased. There is atelectasis or infiltrate at the left base and left retrocardiac region. No diaphragmatic elevation noted. At this time his saturations are improved to 94?95%. Will discharge from PACU.
== END 2025-03-19 14:26 | disposition home or self-care (01) ==
LOC: SDC 06:29 → AC 06:30
PROVIDERS: Referring Provider Student in an Organized Health Care Education/Training Program; Visit Provider Student in an Organized Health Care Education/Training Program
PROC: (CPT 29827; principal; 2025-03-19 08:10)
DX: M75.101 Unspecified rotator cuff tear or rupture of right shoulder, not specified as traumatic (principal); M75.41 Impingement syndrome of right shoulder; M75.21 Bicipital tendinitis, right shoulder; M25.311 Other instability, right shoulder; W19.XXXA Unspecified fall, initial encounter; F17.210 Nicotine dependence, cigarettes, uncomplicated
CPT/HCPCS: 29827; 29826; 29828; 01630; 64415; 71045; 94640; C1713

== ENCOUNTER → 2025-09-11 | Outpatient (CLI) | payer MEDICARE, MEDICAID, SELFPAY ==
--- NOTE | 2025-09-11 16:25 | CT_ITS ---
PROCEDURE: EXTREMITY UPPER WITHOUT CONTRA 09/11/2025 REASON FOR EXAM: PAIN TECHNIQUE: Procedure Code: CTEUWO Modality: CT Procedure: EXTREMITY UPPER WITHOUT CONTRA Coronal and Sagittal reconstruction series were provided. One or more dose reduction techniques were used (e.g., Automated exposure control, adjustment of the mA and/or kV according to patient size, use of iterative reconstruction technique. RADIATION DOSE SUMMARY: CTDlvol: 26.36 mGy DLP: 615.76 mGycm COMPARISON: None available. FINDINGS: Computed tomographic images of the right shoulder demonstrate subchondral cysts, sclerosis, and joint space narrowing of the humerus as well as the acromion with tiny subclavicular and subacromial osteophytes. Marginal humeral osteophytes. The humerus is high-riding. Mild degenerative changes of the thoracic spine. No evidence of acute rib fracture. No axillary lymphadenopathy. Mild chronic lung changes. The soft tissues are otherwise unremarkable. CT/Extremity Upper without Contra IMPRESSION: Osteoarthritic degenerative changes of the glenohumeral joint as well as the ac romioclavicular joint with subclavicular and subacromial osteophytes that can predispose the patient to impingement type sym ptoms. No high-riding humeral head can also be seen in patients with rotator cuff injuries. If clinical concerns persist, con business planning director further evaluation with an MRI if the patient is able. Reading Location: [id number]
== END | disposition home or self-care (01) ==
PROVIDERS: Referring Provider Student in an Organized Health Care Education/Training Program; Visit Provider Student in an Organized Health Care Education/Training Program
DX: M25.311 Other instability, right shoulder (principal); S46.111D Strain of muscle, fascia and tendon of long head of biceps, right arm, subsequent encounter; S46.011D Strain of muscle(s) and tendon(s) of the rotator cuff of right shoulder, subsequent encounter
CPT/HCPCS: 73200